=== PATIENT | male | born 1970 | race Caucasian/White ===

== ENCOUNTER 2024-09-17 00:08 | Inpatient (IN) | payer OTHER ==
[~2024-09-17] VITALS: Ht 185.4 cm; Wt 90.0 kg
[2024-09-17 00:59] LABS: EOSINOPHILS % (AUTO) 0 % (1.0-6.0); NEUTROPHILS # (AUTO) 10.9 K/uL (1.8-7.7)
[2024-09-17 01:00] LABS: COVID AG,FIA SOURCE NASAL SWAB
[2024-09-17 01:05] LABS: BASOPHILS % (AUTO) 0.2 % (0.0-2.0); HEMOGLOBIN 15.8 g/dL (13.5-17.5); LYMPHOCYTES # (AUTO) 1.7 K/uL (1.0-4.8); LYMPHOCYTES % (AUTO) 12.5 % (22.0-44.0); MEAN CORPUSCULAR HEMOGLOBIN 35.5 pg (26.0-34.0); MEAN CORPUSCULAR HGB CONC 34.4 G/dL (31.0-37.0); MEAN CORPUSCULAR VOLUME 103 fL (80-100); MONOCYTES # (AUTO) 1.1 K/uL (0.1-1.0); MONOCYTES % (AUTO) 7.7 % (2.0-9.0); NEUTROPHILS % (AUTO) 79.6 % (40.0-70.0); PLATELET COUNT (AUTO) 153 K/uL (150-450); RED BLOOD CELL COUNT(AUTO) 4.45 MIL/uL (4.50-5.90); RED CELL DISTRIBUTION WIDTH 13.9 % (11.5-14.5); WHITE BLOOD COUNT (AUTO) 13.7 K/uL (4.5-11.0)
[2024-09-17 01:07] LABS: ANION GAP 12 mmol/L (8-16); CALCIUM, TOTAL 8.6 mg/dL (8.8-10.5); CARBON DIOXIDE 27 mmol/L (22-29); CHLORIDE 99 mmol/L (98-107); CREATININE 0.89 mg/dL (0.60-1.30); GLOMERULAR FILTR. RATE CALC > 60 mL/min (>60); GLUCOSE,RANDOM 92 mg/dL (70-110); POTASSIUM 3.3 mmol/L (3.5-5.1); SODIUM SERUM 138 mmol/L (136-145); UREA NITROGEN, BLOOD 24 mg/dL (7-18)
[2024-09-17 01:12] LABS: ALCOHOL, BLOOD (SERUM) < 3 mg/dL (0-10)
[2024-09-17 01:17] LABS: TROPONIN I-HIGH SENSITIVITY 29 ng/L (<76)
[2024-09-17 01:18] LABS: SARS-COV2 (COVID) ANTIGEN,FIA Negative (Negative)
[2024-09-17] MEDS: DILTIAZEM HCL 5 MG/ML 5 ML VIAL IVP ONE (01:31)
[2024-09-17] MEDS: SODIUM CHLORIDE 0.9% 1,000 ML IV ONE (04:58)
[2024-09-17] MEDS: DILTIAZEM HCL 125 MG in DEXTROSE 5%-WATER 100 ML IV PRN (04:59)
[2024-09-17] MEDS ORDERED: APIX5TAB PO (07:00)
[2024-09-17] MEDS ORDERED: FURO20TA4 PO (07:00)
[2024-09-17] MEDS ORDERED: ATOR40TA71 PO (07:00)
[2024-09-17] MEDS ORDERED: METO-416 PO (07:00)
[2024-09-17] MEDS ORDERED: VALS80TA32 PO (07:00)
[2024-09-17 07:02] LABS: APPEARANCE,URINE CLEAR (CLEAR); BILIRUBIN,URINE NEGATIVE (NEGATIVE); GLUCOSE, URINE (UA) NEGATIVE (NEGATIVE); LEUKOCYTE ESTERASE ,URINE NEGATIVE (NEGATIVE); NITRATE,URINE NEGATIVE (NEGATIVE); OCCULT BLOOD,URINE NEGATIVE (NEGATIVE); PH,URINE 6.5 (5.0-8.0); PH,URINE DRUG SCREEN 6.5 (5.0-8.0); PROTEIN,URINE 30-70 mg/dL (NEGATIVE); SPECIFIC GRAVITIY, URINE 1.029 (1.003-1.030)
[2024-09-17 07:18] LABS: ALCOHOL, URINE DRUG SCREEN NEGATIVE (NEGATIVE); AMPHET/METH SCREEN,URINE POSITIVE (NEGATIVE); BARBITURATE SCREEN, URINE NEGATIVE (NEGATIVE); BENZODIAZEPINES SCREEN,URINE NEGATIVE (NEGATIVE); CANNABINOID SCREEN,URINE POSITIVE (NEGATIVE); COCAINE SCREEN,URINE NEGATIVE (NEGATIVE); METHADONE SCREEN, URINE NEGATIVE (NEGATIVE); OPIATE SCREEN,URINE NEGATIVE (NEGATIVE); PHENCYCLIDINE SCREEN,URINE NEGATIVE (NEGATIVE)
[2024-09-17 07:19] LABS: COLOR,URINE DARK YELLOW (YELLOW)
[2024-09-17] MEDS: LORazepam 2 MG TABLET PO ONE (08:12)
[2024-09-17] MEDS: NAPROXEN 250 MG TABLET PO ONE (08:12)
[2024-09-17] MEDS: APIXABAN 5 MG TABLET PO SCH (10:09)
[2024-09-17] MEDS: AMIODARONE HCL 750 MG in DEXTROSE 5%-WATER 485 ML IV SCH (10:18)
[2024-09-17] MEDS ORDERED: MAGNESIUM HYDROXIDE SUSPENSION 30 ML UDCUP PO PRN (13:15)
[2024-09-17] MEDS ORDERED: MORPHINE SULFATE 2 MG/ML SYRINGE IVP PRN (13:15)
[2024-09-17] MEDS ORDERED: BISACODYL 10 MG RECTAL RECTAL SUPPOSITORY PR PRN (13:15)
[2024-09-17] MEDS ORDERED: ONDANSETRON HCL 4 MG/2 ML VIAL IVP PRN (13:15)
[2024-09-17 14:37] VITALS: BP 106/50; PULSE 84; RESP 18; TEMP 98; O2SAT 98
[2024-09-17] MEDS ORDERED: POTASSIUM CHL 10 MEQ/WATER 50 ML IV PRN (15:15)
[2024-09-17] MEDS: POTASSIUM CHLORIDE 20 MEQ ER TABLET PO PRN (16:06)
[2024-09-17] MEDS ORDERED: DiphenhydrAMINE HCL 50 MG/ML VIAL IM ONE (19:00)
[2024-09-17] MEDS ORDERED: HALOPERIDOL LACTATE 5 MG/ML VIAL IM ONE (19:00)
[2024-09-17] MEDS ORDERED: LORazepam 2 MG/ML VIAL IM ONE (19:00)
[2024-09-17] MEDS: DiphenhydrAMINE HCL 50 MG/ML VIAL IM ONE (19:31)
[2024-09-17] MEDS: LORazepam 2 MG/ML VIAL IM ONE (19:31)
[2024-09-17] MEDS: HALOPERIDOL LACTATE 5 MG/ML VIAL IM ONE (19:32)
[2024-09-17 20:02] VITALS: BP 103/70; PULSE 118; RESP 18; TEMP 97.9; O2SAT 96
[2024-09-17] MEDS: DOCUSATE SODIUM 100 MG CAPSULE PO SCH (20:04)
[2024-09-17] MEDS: ATORVASTATIN CALCIUM 40 MG TABLET PO SCH (20:05)
[2024-09-17 23:17] VITALS: BP 102/63; PULSE 107; RESP 17; TEMP 97.3; O2SAT 95
[2024-09-18 03:13] VITALS: BP 112/63; PULSE 105; RESP 18; TEMP 97.5; O2SAT 94
[2024-09-18 08:00] VITALS: BP 110/68; PULSE 63; RESP 18; TEMP 97.5; O2SAT 98
[2024-09-18 08:11] LABS: ANION GAP 11 mmol/L (8-16); CALCIUM, TOTAL 8.6 mg/dL (8.8-10.5); CARBON DIOXIDE 26 mmol/L (22-29); CHLORIDE 104 mmol/L (98-107); CREATININE 0.74 mg/dL (0.60-1.30); GLOMERULAR FILTR. RATE CALC > 60 mL/min (>60); GLUCOSE,RANDOM 68 mg/dL (70-110); POTASSIUM 3.8 mmol/L (3.5-5.1); SODIUM SERUM 141 mmol/L (136-145); UREA NITROGEN, BLOOD 24 mg/dL (7-18)
[2024-09-18] MEDS: PANTOPRAZOLE SODIUM 40 MG DR TABLET PO SCH (08:44)
[2024-09-18] MEDS: ACETAMINOPHEN 325 MG TABLET PO PRN (08:48)
[2024-09-18] MEDS: FUROSEMIDE 20 MG TABLET PO SCH (12:29)
[2024-09-18] MEDS ORDERED: FUROSEMIDE 40 MG/4 ML VIAL IVP SCH (12:30)
[2024-09-18] MEDS: METOPROLOL SUCCINATE 50 MG ER TABLET PO SCH (12:30)
[2024-09-18] MEDS: ATORVASTATIN CALCIUM 40 MG TABLET PO SCH (12:30)
[2024-09-18] MEDS ORDERED: NICOTINE 14 MG/24 HOUR PATCH TD SCH (15:45)
[2024-09-18 16:09] VITALS: BP 91/54; PULSE 107; RESP 18; TEMP 97.5; O2SAT 96
[2024-09-18] MEDS: NICOTINE 14 MG/24 HOUR PATCH TD SCH (16:43)
[2024-09-18] MEDS ORDERED: SODIUM CHLORIDE 0.9% 500 ML IV ONE (17:26)
[2024-09-18] MEDS: SODIUM CHLORIDE 0.9% 500 ML IV ONE (17:58)
[2024-09-18] MEDS: SODIUM CHLORIDE 0.9% 1,000 ML IV ONE (17:58)
[2024-09-18 18:51] VITALS: BP 100/62; PULSE 100
[2024-09-18 20:34] VITALS: BP 90/61; PULSE 101; RESP 18; TEMP 97.8; O2SAT 95
[2024-09-19] VITALS (7 sets, daily range): BP systolic 102–122; BP diastolic 67–93; PULSE 87–117; RESP 18–19; TEMP 97.5–98; O2SAT 95–98
[2024-09-19] MEDS: HYDROCODONE/ACETAMINOPHEN 5-325 MG TABLET PO PRN (05:25)
[2024-09-19 07:18] LABS: BASOPHILS % (AUTO) 0.3 % (0.0-2.0); HEMATOCRIT 45.1 % (41-53); HEMOGLOBIN 15.5 g/dL (13.5-17.5); LYMPHOCYTES # (AUTO) 2.6 K/uL (1.0-4.8); MEAN CORPUSCULAR HEMOGLOBIN 36.1 pg (26.0-34.0); MEAN CORPUSCULAR HGB CONC 34.4 G/dL (31.0-37.0); MEAN CORPUSCULAR VOLUME 105 fL (80-100); MONOCYTES # (AUTO) 1.1 K/uL (0.1-1.0); MONOCYTES % (AUTO) 9.9 % (2.0-9.0); NEUTROPHILS % (AUTO) 64.8 % (40.0-70.0); PLATELET COUNT (AUTO) 155 K/uL (150-450); RED CELL DISTRIBUTION WIDTH 13.7 % (11.5-14.5); WHITE BLOOD COUNT (AUTO) 10.8 K/uL (4.5-11.0)
[2024-09-19 07:22] LABS: RBC MORPHOLOGY COMMENT ABNORMAL RBC MORPH
[2024-09-19 07:41] LABS: ALANINE AMINOTRANSFERASE 33 U/L (12-78); ALBUMIN 2.8 g/dL (3.4-5.0); ALKALINE PHOSPHATASE 80 U/L (46-116); ANION GAP 8 mmol/L (8-16); ASPARTATE AMINOTRANSFERASE 32 U/L (15-37); BILIRUBIN,TOTAL 0.9 mg/dL (0.1-1.0); CALCIUM, TOTAL 8.4 mg/dL (8.8-10.5); CARBON DIOXIDE 25 mmol/L (22-29); CHLORIDE 106 mmol/L (98-107); CREATININE 0.56 mg/dL (0.60-1.30); GLOMERULAR FILTR. RATE CALC > 60 mL/min (>60); GLUCOSE,RANDOM 96 mg/dL (70-110); SODIUM SERUM 139 mmol/L (136-145); UREA NITROGEN, BLOOD 16 mg/dL (7-18)
[2024-09-19] MEDS: AMIODARONE HCL 200 MG TABLET PO SCH (14:26)
[2024-09-19] MEDS: DIGOXIN 250 MCG/ML 2 ML AMP IVP ONE (17:58)
[2024-09-19] MEDS: LURASIDONE HCL 40 MG TABLET PO SCH (18:07)
[2024-09-19] MEDS: ZOLPIDEM TARTRATE 5 MG TABLET PO PRN (20:44)
[2024-09-19] MEDS: GABAPENTIN 300 MG CAPSULE PO SCH (20:44)
[2024-09-20 01:07] LABS: HEPATITIS C AB (EIA) Non Reactive (Non Reactive)
[2024-09-20 04:04] VITALS: BP 134/89; PULSE 108; RESP 19; TEMP 97.8; O2SAT 98
[2024-09-20 06:51] VITALS: BP 116/80; PULSE 117; RESP 17; O2SAT 95
[2024-09-20 07:56] VITALS: BP 117/75; PULSE 132; RESP 19; TEMP 98.1; O2SAT 96
[2024-09-20 08:00] VITALS: PULSE 114
[2024-09-20 12:00] VITALS: BP 110/80; PULSE 110; RESP 18; TEMP 98.6; O2SAT 96
[2024-09-20] MEDS ORDERED: LURA40TA2 PO (12:07)
[2024-09-20] MEDS ORDERED: ATOR40TA71 PO (12:07)
[2024-09-20] MEDS ORDERED: GABA-1181 PO (12:07)
[2024-09-20] MEDS ORDERED: FURO20TA4 PO (12:07)
[2024-09-20] MEDS ORDERED: APIX5TAB PO (12:07)
[2024-09-20] MEDS ORDERED: AMIO200 PO (12:07)
[2024-09-20] MEDS ORDERED: METO-391 PO (12:07)
== END 2024-09-20 15:10 | disposition home or self-care (01) | DRG 201 ==
LOC: EMS 00:10 → EDH 11:40 → UNDOADMIN 12:57 → EDH 14:23 → 5S 14:23
PROVIDERS: ADMIT Internal Medicine; ATTEND Internal Medicine
PROC: GZ56ZZZ Individual Psychotherapy, Supportive (ICD-10-PCS; principal; 2024-09-19)
DX: I48.91 Unspecified atrial fibrillation (principal); G92.9 Unspecified toxic encephalopathy; I42.9 Cardiomyopathy, unspecified; I50.9 Heart failure, unspecified; F31.5 Bipolar disorder, current episode depressed, severe, with psychotic features; I11.0 Hypertensive heart disease with heart failure; Z20.822 Contact with and (suspected) exposure to COVID-19; E78.5 Hyperlipidemia, unspecified; F43.10 Post-traumatic stress disorder, unspecified; F15.10 Other stimulant abuse, uncomplicated; F12.10 Cannabis abuse, uncomplicated; Z86.73 Personal history of transient ischemic attack (TIA), and cerebral infarction without residual deficits; Z79.01 Long term (current) use of anticoagulants; Z79.899 Other long term (current) drug therapy
CPT/HCPCS: 71045; 80048; 80053; 80307; 81003; 83880; 84484; 85025; 86803; 87340; 93005; 93306; 96365; 96375; 99285; G0378; G0480; J0282; J1160; J1200; J1630; J2060; J3490; J7030; J7040; J7060; 36415-L1; 36415-TC